=== PATIENT | female | born 1995 | race African-American/Black ===

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

== ENCOUNTER 2018-02-09 12:08 | Emergency (ER) | payer MEDICAID ==
[~2018-02-09] VITALS: Ht 162.6 cm; Wt 55.0 kg
[2018-02-09] MEDS ORDERED: KETOROLAC 60MG/2ML VIAL IM ONE (14:30)
[2018-02-09] MEDS ORDERED: BACITRACIN ZINC OINT UDPKT TOP ONE (16:15)
[2018-02-09] MEDS ORDERED: LIDOCAINE HCL/PF 1% 10 MG/ML 5ML VIAL IJ ONE (16:15)
[2018-02-09 18:47] VITALS: BP 117/63
== END 2018-02-09 18:52 | disposition home or self-care (01) ==
LOC: ER 12:08
DX: S61.102A Unspecified open wound of left thumb with damage to nail, initial encounter (principal); M25.571 Pain in right ankle and joints of right foot; F17.200 Nicotine dependence, unspecified, uncomplicated; W51.XXXA Accidental striking against or bumped into by another person, initial encounter; Y93.89 Activity, other specified; Y92.89 Other specified places as the place of occurrence of the external cause; Y99.8 Other external cause status
CPT/HCPCS: 11730; 73130; 73610; 73630; 81025; 96372; 99284; J1885; J3490

== ENCOUNTER 2019-01-23 16:42 | Emergency (ER) | payer MEDICAID ==
[~2019-01-23] VITALS: Ht 162.6 cm; Wt 55.0 kg
[2019-01-23] MEDS ORDERED: SODIUM CHLORIDE 0.9% 1,000 ML IV ONE (18:58)
[2019-01-23] MEDS ORDERED: KETOROLAC 30MG/ML VIAL IV STA (18:58)
[2019-01-23] MEDS ORDERED: DEXAMETHASONE 4MG/ML 1ML VIAL IV ONE (19:00)
[2019-01-23 19:11] LABS: CLARITY URINE CLOUDY (CLEAR); COLOR URINE YELLOW (YELLOW); KETONES URINE NEGATIVE (NEGATIVE); LEUKOCYTE ESTERASE URINE NEGATIVE (NEGATIVE); NITRITE URINE NEGATIVE (NEGATIVE); OCCULT BLOOD URINE NEGATIVE (NEGATIVE); PH URINE 6.5 (4.5-8.0); PROTEIN URINE NEGATIVE (NEGATIVE); SPECIFIC GRAVITY URINE 1.011 (1.005-1.030); UROBILINOGEN URINE 0.2 E.U./dL (0.2-1.0)
[2019-01-23 19:19] LABS: BASOPHILS % 0.4 % (0.0-2.0); EOSINOPHILS % 2.7 % (0.0-5.0); HEMOGLOBIN. 13.1 g/dL (12.0-16.0); LYMPHOCYTES % 13.5 % (20.0-50.0); MEAN CORPUSCULAR HEMOGLOBIN 26.4 pg (28.0-32.0); MEAN CORPUSCULAR VOLUME 80.6 fL (81.0-99.0); MEAN PLATELET VOLUME 8.5 fl (7.4-10.4); MONOCYTES % 7.1 % (2.0-8.0); NEUTROPHILS % 76.3 % (40.0-76.0); PLATELET 311 x1000/uL (130-400); RED BLOOD CELL COUNT 4.97 mill/uL (4.2-5.4); RED CELL DISTRIBUTION WIDTH 14.3 % (11.6-14.6)
[2019-01-23 19:27] LABS: CHLORIDE 108 mEq/L (98-107)
[2019-01-23] MEDS ORDERED: PENICILLIN G BENZATHINE 1,200,000 UNITS/2ML SYR IM ONE (20:15)
[2019-01-23 20:52] VITALS: BP 103/71
== END 2019-01-23 20:55 | disposition home or self-care (01) ==
LOC: ER 16:47
DX: J02.8 Acute pharyngitis due to other specified organisms (principal); B96.89 Other specified bacterial agents as the cause of diseases classified elsewhere; F12.10 Cannabis abuse, uncomplicated; R11.2 Nausea with vomiting, unspecified
CPT/HCPCS: 36415; 80053; 81003; 81025; 85025; 87070; 87430; 96361; 96372; 96374; 96375; 99283; J0561; J1100; J1885; J7030; Z7610

== ENCOUNTER 2019-05-08 23:32 | Emergency (ER) | payer MEDICAID | END 2019-05-09 00:20 | disposition left against medical advice (07) | LOC: ER 23:32 | DX: Z53.21 Procedure and treatment not carried out due to patient leaving prior to being seen by health care provider (principal) ==

== ENCOUNTER 2019-05-09 11:52 | Emergency (ER) | payer MEDICAID ==
[~2019-05-09] VITALS: Ht 162.6 cm; Wt 54.9 kg
[2019-05-09 12:02] VITALS: BP 139/74
[2019-05-09] MEDS ORDERED: CEFTRIAXONE SODIUM 250 MG/VIAL IM ONE (14:15)
[2019-05-09] MEDS ORDERED: IBUPROFEN 600MG TABLET PO ONE (14:15)
[2019-05-09] MEDS ORDERED: AZITHROMYCIN 500 MG TABLET PO ONE (14:15)
[2019-05-09 16:28] LABS: CLARITY URINE CLEAR (CLEAR); COLOR URINE YELLOW (YELLOW); KETONES URINE 1+ (NEGATIVE); LEUKOCYTE ESTERASE URINE 1+ (NEGATIVE); NITRITE URINE NEGATIVE (NEGATIVE); OCCULT BLOOD URINE 1+ (NEGATIVE); PH URINE 6.5 (4.5-8.0); PROTEIN URINE NEGATIVE (NEGATIVE); SPECIFIC GRAVITY URINE 1.003 (1.005-1.030); UROBILINOGEN URINE 0.2 E.U./dL (0.2-1.0)
== END 2019-05-09 16:24 | disposition home or self-care (01) ==
LOC: ER 11:59
DX: Z20.2 Contact with and (suspected) exposure to infections with a predominantly sexual mode of transmission (principal); F12.10 Cannabis abuse, uncomplicated
CPT/HCPCS: 81003; 81025; 87086; 87491; 87591; 96372; 99283; J0696

== ENCOUNTER 2019-05-21 03:40 | Emergency (ER) | payer MEDICAID ==
[~2019-05-21] VITALS: Ht 162.6 cm; Wt 52.5 kg
[2019-05-21 04:40] LABS: BASOPHILS % 0.9 % (0.0-2.0); EOSINOPHILS % 0.4 % (0.0-5.0); HEMATOCRIT. 42.2 % (36.0-48.0); HEMOGLOBIN. 14.2 g/dL (12.0-16.0); LYMPHOCYTES % 24.5 % (20.0-50.0); MEAN CORPUSCULAR HEMOGLOBIN 27.1 pg (28.0-32.0); MEAN CORPUSCULAR VOLUME 80.5 fL (81.0-99.0); NEUTROPHILS % 70.2 % (40.0-76.0); PLATELET 264 x1000/uL (130-400); RED BLOOD CELL COUNT 5.25 mill/uL (4.2-5.4); RED CELL DISTRIBUTION WIDTH 15.7 % (11.6-14.6)
[2019-05-21 04:44] LABS: CLARITY URINE CLEAR (CLEAR); COLOR URINE YELLOW (YELLOW); KETONES URINE NEGATIVE (NEGATIVE); LEUKOCYTE ESTERASE URINE TRACE (NEGATIVE); NITRITE URINE NEGATIVE (NEGATIVE); OCCULT BLOOD URINE NEGATIVE (NEGATIVE); PH URINE 8.5 (4.5-8.0); PROTEIN URINE NEGATIVE (NEGATIVE); UROBILINOGEN URINE 0.2 E.U./dL (0.2-1.0)
[2019-05-21 04:53] LABS: HCG SCREEN NEGATIVE
[2019-05-21 05:02] LABS: CHLORIDE 107 mEq/L (98-107)
[2019-05-21 05:03] LABS: *AMPHETAMINES SCREEN URINE NEGATIVE (NEGATIVE); *BARBITURATES SCREEN URINE NEGATIVE (NEGATIVE); *BENZODIAZEPINES SCREEN URINE NEGATIVE (NEGATIVE); *COCAINE SCREEN URINE NEGATIVE (NEGATIVE); METHADONE URINE SCREEN NEGATIVE (NEGATIVE); OPIATES URINE SCREEN NEGATIVE (NEGATIVE)
[2019-05-21 05:04] LABS: PHENCYCLIDINE URINE SCREEN NEGATIVE (NEGATIVE)
[2019-05-21 05:06] LABS: ETHANOL BLOOD < 10 mg/dL
[2019-05-21 06:06] LABS: CANNABINOID URINE SCREEN PRESUMTIVE POSITIVE (NEGATIVE)
[2019-05-21] MEDS ORDERED: LORAZEPAM 1MG TABLET PO ONE ×3 (07:00→13:45)
[2019-05-21] MEDS ORDERED: CEFTRIAXONE SODIUM 1 G/VIAL IM ONE (07:00)
[2019-05-21] MEDS ORDERED: LIDOCAINE HCL 1% 20ML VIAL (Pyxis) INJ INFIL ONE (07:00)
[2019-05-21] MEDS ORDERED: ZIPRASIDONE MESYLATE 20MG/VIAL IM ONE (15:30)
[2019-05-22] MEDS ORDERED: DIPHENHYDRAMINE 50MG/ML VIAL IM ONE (19:15)
[2019-05-23] MEDS ORDERED: CEPHALEXIN 250MG CAPSULE PO ONE (09:00)
[2019-05-23] MEDS ORDERED: ACETAMINOPHEN 325MG TABLET PO ONE (09:00)
[2019-05-23 14:20] VITALS: BP 120/72
== END 2019-05-23 14:36 ==
LOC: ER 03:40
DX: F41.9 Anxiety disorder, unspecified (principal); F91.8 Other conduct disorders; N30.00 Acute cystitis without hematuria; R45.851 Suicidal ideations; F12.10 Cannabis abuse, uncomplicated; Z75.1 Person awaiting admission to adequate facility elsewhere; Z78.1 Physical restraint status
CPT/HCPCS: 36415; 80053; 80305; 80307; 80320; 80329; 81003; 81025; 84703; 85025; 96372; 99284; J0696; J3486; J3490; G0480

== ENCOUNTER 2024-08-10 10:48 | Emergency (ER) | payer MEDICAID, OTHER ==
[~2024-08-10] VITALS: Ht 162.6 cm; Wt 58.0 kg
[2024-08-10 11:00] VITALS: BP 106/75; TEMP 36.7; O2SAT 100
[2024-08-10 11:01] VITALS: PULSE 91; RESP 18; O2SAT 100
[2024-08-10] MEDS ORDERED: ACETAMINOPHEN 325MG TABLET PO ONE (11:30)
[2024-08-10] MEDS ORDERED: BO1 TP (12:11)
[2024-08-10] MEDS ORDERED: CEPH500C2 MT (12:11)
== END 2024-08-10 12:24 | disposition home or self-care (01) ==
LOC: ER 10:48
DX: S01.81XA Laceration without foreign body of other part of head, initial encounter (principal); M79.604 Pain in right leg; M25.571 Pain in right ankle and joints of right foot; V49.3XXA Car occupant (driver) (passenger) injured in unspecified nontraffic accident, initial encounter; Y93.89 Activity, other specified; Y92.89 Other specified places as the place of occurrence of the external cause; Y99.8 Other external cause status
CPT/HCPCS: 99283